=== PATIENT | male | born 1995 | race Caucasian/White ===

== ENCOUNTER 2020-09-17 03:20 | Emergency (ER) | payer OTHER ==
[2020-09-17 03:27] VITALS: BP 124/68; PULSE 76; TEMP 98.5; BMI 24.4
[2020-09-17] MEDS ORDERED: CEPHALEXIN MONOHYDRATE 500 MG CAPSULE (UD) PO ONE (04:03)
[2020-09-17] MEDS ORDERED: DIPHTH,PERTUSS(ACELL),TET 0.5 ML DISP.SYRIN IM ONE ×2 (04:04→04:07)
[2020-09-17] MEDS ORDERED: CEPHALEXIN MONOHYDRATE 500 MG CAPSULE (UD) ONE (04:06)
== END 2020-09-17 04:16 | disposition home or self-care (01) ==
LOC: FER 03:20
PROC: 3E0233Z Introduction of Anti-inflammatory into Muscle, Percutaneous Approach (ICD-10-PCS; principal; 2020-09-17)
DX: S81.011A Laceration without foreign body, right knee, initial encounter (principal)
CPT/HCPCS: 99284-25

== ENCOUNTER 2020-10-03 11:30 | Emergency (ER) | payer OTHER ==
[2020-10-03 11:50] VITALS: BP 121/69; PULSE 63; TEMP 99.1; BMI 26.6
== END 2020-10-03 13:40 | disposition home or self-care (01) ==
LOC: FER 11:30
DX: M25.561 Pain in right knee (principal)
CPT/HCPCS: 73562-TC-RT-FY; 99283-25